=== PATIENT | male | born 1955 | race Caucasian/White ===

== ENCOUNTER 2019-06-14 15:22 | Emergency (ER) | payer OTHER ==
[~2019-06-14] VITALS: Ht 165.1 cm; Wt 81.7 kg
[~2019-06-14 15:22] MED LIST: ASPIRIN EC81 MG PO; HYDROCODON-ACE1 EA10 PO; HYZAAR 100-251 EACH PO; PHENAZOPYRIDIN200 MG PO; UNISOM SLEEP AI25 MG PO
--- OUTSIDE RECORDS SUMMARY | 2019-06-14 15:24 | XMS ---
PreManage Notification: PHYLLIS LOPEZ Security General Warehouse Worker Events No recent Security Events currently on file CRITERIA MET - TREVP CARE PROVIDERS Toby Linton MD Primary Care Current PHONE: Unknown orsia Case or Fishing Hand Current PHONE: Unknown Lloyd has no Care Guidelines for this patient. Wild VISIT COUNT (12 MO.) 1 JERALD Villalpando TOTAL 1 NOTE: Visits indicate total known visits. ED/UCC VISIT TRACKING (12 MO.) 06/14/2019 15:22 JERALD Colon [place] TYPE: Emergency COMPLAINT: - FINGER INJ INPATIENT VISIT TRACKING (12 MO.) No inpatient visits to display in this time frame [email or web address]
[2019-06-14] MEDS ORDERED: ZOLPIDEM TARTRAT5 MG PO (15:32)
[2019-06-14] MEDS ORDERED: LOSARTAN-HCTZ1 EAC1 PO (15:32)
[2019-06-14] MEDS ORDERED: ISOSORBIDE MONO30 MG PO (15:33)
[2019-06-14] MEDS ORDERED: ATORVASTATIN CA80 MG PO (15:33)
[2019-06-14] MEDS ORDERED: CLEOCIN HCL300 MG PO (17:28)
[2019-06-14] MEDS ORDERED: NORCO 7.5-3251 EACH PO (17:28)
== END 2019-06-14 18:33 | disposition home or self-care (01) ==
LOC: ED 15:22
DX: S63.280A Dislocation of proximal interphalangeal joint of right index finger, initial encounter (principal); S61.310A Laceration without foreign body of right index finger with damage to nail, initial encounter; W22.8XXA Striking against or struck by other objects, initial encounter; I10 Essential (primary) hypertension; E78.5 Hyperlipidemia, unspecified; Z91.030 Bee allergy status; Z88.0 Allergy status to penicillin; Z79.899 Other long term (current) drug therapy; Z79.82 Long term (current) use of aspirin
CPT/HCPCS: 11760; 26770; 73140; 90471; 90715; 99283-25

== ENCOUNTER 2019-06-22 05:45 | Day surgery (SDC) | payer OTHER ==
--- NOTE | 2019-06-19 14:42 | NUR ---
CESAR GATES CRNA REVIEWED PT CHART. PT REPORTS HAVING CARDIOGRAM DONE WITH [facility] IN NOV 2018. ATTEMPTED TO CONTACT DR. HAWKINS WITH [facility] FOR REPORT, OFFICE NOT OPEN.
[~2019-06-22] VITALS: Ht 165.1 cm; Wt 79.8 kg
--- NOTE | ~2019-06-22 | OR ---
[facility] [address] [facility] [place], [place] [address] Draft DATE OF OPERATION: 06/22/2019 SURGEON: Huy Broussard MD PREOPERATIVE DIAGNOSIS: Fracture dislocation, right index P2. POSTOPERATIVE DIAGNOSIS: Fracture dislocation, right index P2. PROCEDURE PERFORMED: Open reduction and internal fixation of right P2. CREATIVE GURU: CORNELIUS Blanca. ANESTHESIA: General with digital block. BLOOD LOSS: Minimal. TOURNIQUET TIME: 30 minutes using a finger tourniquet. IMPLANTS: Two 1.0 K-wires. BRIEF HISTORY: Jacinto is a 64-year-old gentleman who was working with wood and table saw. The wood kicked back hitting him in the finger creating an open fracture dislocation of his finger. This was washed out and sutured in the ER, and reduced. The radiograph showed persistent subluxation of the PIP joint and a bone fragment dorsally. Risks and benefits of open reduction and internal fixation were discussed with him. He elected to proceed. DESCRIPTION OF PROCEDURE: Once consent was obtained, he was taken to the operating room. After adequate anesthesia was placed on operating room table. All downside pressure points were well padded. The hand was prepped and draped in a standard sterile fashion. A finger tip PATIENT NAME: JACINTO LOPEZ OPERATIVE REPORT DATE OF : 57 REPORT #: [id number] PHYSICIAN: HUY BROUSSARD MD PCP: SAMANTHA TANG PAC REPORT IS CONFIDENTIAL AND NOT TO BE RELEASED WITHOUT AUTHORIZATION [facility] [address] [place] [address] Draft tourniquet was fashioned using a glove and rolled proximally. The prior laceration was then opened, extended proximally and distally. The subcutaneous dissection was taken down to the extensor tendon and a small bone aileen. It was actually about 4 pieces, not just one solid piece. There was nothing big enough to put a screw into. We did reduce it and held it with Lincoln. Showed good reduction. We passed a 1.0 K-wire through the biggest fragment and into the body of the base of P2. There was still a little bit of persistent subluxation. I had no other fixation options as there was no stainless steel wire. We then elected to go ahead with pinning the finger in extension to hold the joint reduction for 3 weeks. A K-wire was passed from the tip of the distal phalanx across P3 and P2 engaging the body of P1. The joint was concentrically reduced at this point. The wound was copiously irrigated with antibiotic solution and closed with 4-0 nylon. The pins were then cut and Jurgan balls were applied. The wound was dressed with bacitracin, Xeroform, and gauze. The tourniquet was released. The patient was taken to the recovery room in satisfactory condition. All sponge, needle, and instrument counts were correct. Huy Broussard MD BA/JENNIFER /[id number] Copies: ~ PATIENT NAME: JACINTO LOPEZ JANET OPERATIVE REPORT DATE OF : 57 REPORT #: [id number] PHYSICIAN: HUY BROUSSARD MD PCP: SAMANTHA TANG PAC REPORT IS CONFIDENTIAL AND NOT TO BE RELEASED WITHOUT AUTHORIZATION
[~2019-06-22 05:45] MED LIST changes: +ATORVASTATIN CA80 MG PO; +CLEOCIN HCL300 MG PO; +ISOSORBIDE MONO30 MG PO; +LOSARTAN-HCTZ1 EAC1 PO; +NORCO 7.5-3251 EACH PO; +ZOLPIDEM TARTRAT5 MG PO
[2019-06-22] MEDS ORDERED: HYDROCODON-ACE1 EA11 PO (08:04)
[2019-06-22] MEDS ORDERED: CELECOXIB200 MG PO (08:05)
--- NOTE | 2019-06-22 08:25 | NUR ---
06/22/19 0825 Lavern Lion 0801 PT ARRIVED IN PACU NON RESPONSIVE TO VERBAL/TACTILE STIMULI WITH OPA IN PLACE. CHIN LIFT HELD BY RN. 0818 PT REACTIVE. OPA REMOVED. R HAND ELEVATED ON PILLOW AND ICE PLACED. 0822 EPHEDRINE 5MG GIVEN IVP FOR LOW BP OF 83/45 WITH VERBAL ORDER FROM ANESTHESIA.
--- NOTE | 2019-06-22 09:00 | NUR ---
PT RETURNS TO ROOM 10 FROM PACU ON ROOM AIR. REPORT RECEIVED FROM MARBLE CEILING INSTALLER, KIANA. PT AROUSABLE TO VERBAL STIMULUS AND LAYS IN BED WITH EYES CLOSED. PT REPORTS NUMBNESS IN FINGER IN DENIES PAIN/NAUSEA. SMALL AMOUNT OF DRAINAGE ON DRESSINGS. HAND SWOLLEN AT BASE OF RIGHT INDEX FINGER FROM DIGITAL BLOCK. PT PROVIDED WITH WATER AND CRACKERS. AT BEDSIDE. PT DENIES OTHER NEEDS AT THIS TIME. CALL LIGHT WITHIN REACH
--- NOTE | 2019-06-22 09:56 | NUR ---
HOURLY ASSESSMENT COMPLETE. VSS. PT REPORTS NUMBNESS IN RIGHT INDEX FINGER. DENIES PAIN/NAUSEA. PT REQUESTS TO USE BATHROOM. PT DANGLES AT BEDSIDE AND DENIES LIGHTHEADEDNESS. PT AMBULATES TO BATHROOM WITH AT SIDE AND IS ABLE TO VOID 400 ML WIHTOUT DIFFICULTY. PT BACK TO BED. PT SITS UP IN BED AND EATS CRACKERS/DRINKS WATER. PT MEETS DC CRITERIA AT THIS TIME. CALL LIGHT WITHIN REACH
--- NOTE | 2019-06-22 10:58 | NUR ---
LE 1030- PT METS DC CRITERIA. TOLERATES PO FLUIDS/FOOD AND DENIES PAIN/NAUSEA. PT AWAKE AND ALERT AND RETURNED TO BASELINE. INDEX FNGER AND MIDDLE FINGER ON RIGHT HAND NUMB. DECREASED SWELLING FROM DIGIT BLOCK NOTED. 1035- PT AMBULATES TO BATHROOM AND IS ABLE TO VOID WITHOUT DIFFICULTY. PT DRESSES SELF WITH SOME ASSISTANCE FROM . 1055- DC INSTRUCTIONS WITH PRECAUTIONS PROVIDED. PT VERBALIZES UNDERSTANDING AND DENIES FURTHER QUESTIONS. PRESCRIPTION FAXED TO PHARMACY. PT TRANSPORTED IN STABLE CONDITION VIA WHEELCHAIR TO VEHICLE DRIVEN BY .
--- NOTE | 2019-06-22 14:44 | NUR ---
PT ALERT, ORIENTED AND SUPPORTED BY JACKIE. PT FEELS FORTUNATE THAT HE WAS NOT INJURED ANY MORE FROM THE TABLE SAW. IN, EXTENDED A BLESSING. WILL FOLLOW NEEDED
== END 2019-06-22 10:55 | disposition home or self-care (01) ==
LOC: OPS 05:45 → DS 05:45 → OPS 06:45
PROVIDERS: Specialist
PROC: 0PST04Z Reposition Right Finger Phalanx with Internal Fixation Device, Open Approach (ICD-10-PCS; principal; 2019-06-22 06:45)
DX: S62.620B Displaced fracture of middle phalanx of right index finger, initial encounter for open fracture (principal); Z79.2 Long term (current) use of antibiotics; Z79.82 Long term (current) use of aspirin; Z79.899 Other long term (current) drug therapy; W22.8XXA Striking against or struck by other objects, initial encounter
CPT/HCPCS: 01830; 73140; J0690; J1100; J1885; J2250; J2405; J2704; J2795; J7120

== ENCOUNTER 2021-09-04 08:50 | Day surgery (SDC) | payer OTHER, MEDICARE ==
[~2021-09-04] VITALS: Ht 165.1 cm; Wt 77.3 kg
[~2021-09-04 08:50] MED LIST changes: +CELECOXIB200 MG PO; +COENZYME Q-10200 MG PO; +COZAAR50 MG PO; +HYDROCODON-ACE1 EA11 PO; +METFORMIN HCL500 M3 PO; +METOPROLOL SUCC25 MG PO; +TURMERIC500 M2 PO
[2021-09-04] MEDS ORDERED: XARELTO10 MG PO (16:24)
[2021-09-04] MEDS ORDERED: HEALTHYLAX17 GM PO (16:25)
[2021-09-04] MEDS ORDERED: ACETAMINOPHEN500 MG PO (16:25)
[2021-09-04] MEDS ORDERED: OXYCODONE HCL5 MG PO (16:25)
[2021-09-04] MEDS ORDERED: DICLOFENAC SODI75 MG PO (16:25)
[2021-09-04] MEDS ORDERED: GABAPENTIN300 MG PO (17:24)
--- NOTE | 2021-09-11 09:32 | OR ---
[facility] [address], [place] [address] Signed DATE OF OPERATION: 09/04/2021 SURGEON: Huy Broussard MD PREOPERATIVE DIAGNOSIS: Degenerative joint disease, right knee. POSTOPERATIVE DIAGNOSIS: Degenerative joint disease, right knee. PROCEDURE PERFORMED: Right total knee arthroplasty with Declan. SUGARCANE RESEARCH TECHNICIAN: Selma Dawkins PA-C. Selma was present and critical for all portions of the procedure. ANESTHESIA: Spinal. BLOOD LOSS: 175 mL. IMPLANTS: Varun Triathlon size 4, 9 mm polyethylene, 32 mm patella. BRIEF HISTORY: Jacinto is a 66-year-old gentleman with progressive worsening of primarily medial arthritis. He had undergone nonoperative treatment without substantial relief. Risks and benefits of operative treatment were discussed with him and he elected to proceed. DESCRIPTION OF PROCEDURE: Once consent was obtained, he was taken to the operating room. After adequate anesthesia, he was placed on operating room table. All downside pressure points well padded. He was placed on right hip bump and the leg was prepped and draped in a standard sterile fashion. The knee was approached through standard anterior midline incision, carried through skin and subcutaneous tissue. A low mid vastus approach was taken through the capsule and all the way down to the tibia. The MCL was elevated with a sleeve around the posteromedial corner. The infrapatellar fat pad was excised. The anterior horns of menisci were transected. The checkpoints were placed in the medial Electronically Signed By: HUY BROUSSARD MD 09/11/21 0932 PATIENT NAME: JACINTO LOPEZ OPERATIVE REPORT DATE OF : 57 REPORT #: [id number] PHYSICIAN: HUY BROUSSARD MD PCP: SAMANTHA TANG PAC REPORT IS CONFIDENTIAL AND NOT TO BE RELEASED WITHOUT AUTHORIZATION [facility] [address], [place] [address] Signed femoral condyle and in the proximal tibia. The computer ray was placed in the medial femoral condyle and in the proximal tibia through separate stab incisions. The leg was then registered with the computer and the fine anatomic points of the knee were then registered with the computer. The varus valgus testing was undertaken and the knee was adjusted into 1 degree more valgus to even up the soft tissue tension. Once this was completed, the robot was brought in. The straight cuts were made with care taken to protect the patellar tendon and MCL. The two angle cuts were then made and the bony pieces were removed. The posterior osteophytes removed off the femur and then trials were positioned. The knee was taken through range of motion and found to be quite stable with good ligamentous balance. The patella was cut sized and drilled for a 32 mm patella. The distal femur was drilled through the two drill holes and the proximal tibia was finished using the keel punch. The components were then obtained. The tibia was impacted into position first followed by the polyethylene. The femur was impacted until it was well seated. The knee was extended and nicely loaded. The patella was clamped into position. The knee was then taken through range of motion. The patella was stable in the alignment. The On-Q pain pump was percutaneously placed into the adductor canal through the suprapatellar pouch. The periarticular soft tissues were injected with 100 mL ropivacaine-Toradol mixture. The arthrotomy was then closed using #2 Stratafix, subcutaneous tissue with #0 Stratafix, and skin with 3-0 Stratafix. Steri-Strips were applied. It was dressed with an Acticoat dressing and ABD and Kody wrap. He tolerated the procedure well. All sponge, needle, and instrument counts were correct. Huy Broussard MD BA/MODL /[id number] Copies: ~ Electronically Signed By: HUY BROUSSARD MD 09/11/21 0932 PATIENT NAME: JACINTO LOPEZ OPERATIVE REPORT DATE OF : 57 REPORT #: [id number] PHYSICIAN: HUY BROUSSARD MD PCP: SAMANTHA TANG PAC REPORT IS CONFIDENTIAL AND NOT TO BE RELEASED WITHOUT AUTHORIZATION
== END 2021-09-04 18:45 | disposition home or self-care (01) ==
LOC: DS 08:50
PROVIDERS: ATTEND Specialist
PROC: 0SRC0JZ Replacement of Right Knee Joint with Synthetic Substitute, Open Approach (ICD-10-PCS; principal; 2021-09-04 11:35)
DX: M17.11 Unilateral primary osteoarthritis, right knee (principal); E11.9 Type 2 diabetes mellitus without complications; I10 Essential (primary) hypertension; I25.10 Atherosclerotic heart disease of native coronary artery without angina pectoris; Z79.84 Long term (current) use of oral hypoglycemic drugs; Z88.0 Allergy status to penicillin; Z87.891 Personal history of nicotine dependence
CPT/HCPCS: 01402; 64447; 64450; 76942; 97110; 97161; C1713; C1776; J0690; J1100; J1885; J2001; J2250; J2704; J2795; J7121